=== PATIENT | female | born 1985 | race Caucasian/White ===

== ENCOUNTER → 2021-12-05 12:51 | Outpatient (CLI) | payer OTHER, SELFPAY ==
--- NOTE | 2021-12-05 | DI.MRI.S_ITS ---
PROCEDURE: MR WRIST RT WO CON INDICATIONS: Pain in right wrist TECHNIQUE: Noncontrast coronal proton density fast spin echo and T2 fast spin echo with fat saturation; coronal 3-D gradient echo, axial T1 spin echo and T2 fast spin echo with fat saturation, sagittal T1 spin echo through the wrist. COMPARISON: [facility], CR, XR WRIST 3+ VIEWS RIGHT, 11/02/2021, 10:46. [facility] [place], CR, XR WRIST 3+ VIEWS RIGHT, 11/15/2021, 16:21. FINDINGS: Image quality: Excellent. Bones and cartilage: The carpal bones are normally aligned. No bone marrow contusions or fractures. No evidence for avascular necrosis. There is mild degenerative spurring at the base of the 1st metacarpal. Carpal ligaments: The scapholunate and lunotriquetral ligaments appear intact. In the absence of intra-articular contrast, the extrinsic carpal ligaments are not well identified. On sagittal images, the pisohamate ligament appears intact. Triangular fibrocartilage complex: The triangular fibrocartilage appears intact. Tendons and soft tissues: The carpal tunnel structures appear normal, including the median nerve. The ulnar nerve appears normal within Guyon's canal. Mild thickening of the abductor pollicis longus tendon is consistent with tendinosis, without significant tenosynovitis. Mild extensor carpi ulnaris tendinosis. The remaining extensor tendon compartments demonstrate normal morphology, without pathologic tendon sheath fluid. No soft tissue ganglion cysts. IMPRESSION: 1. Mild distal abductor pollicis longus tendinosis without signs of de Quervain tenosynovitis. 2. Mild extensor carpi ulnaris tendinosis. 3. No acute trabecular bone injury. No significant ligament injury is seen. Dictated by: Nicholas Bryant M.D. on 12/05/2021 at 15:16 Approved by: Nicholas Bryant M.D. on 12/05/2021 at 15:22
== END ==
PROVIDERS: Referring Provider Orthopaedic Surgery Foot and Ankle Surgery; Visit Provider Orthopaedic Surgery Foot and Ankle Surgery
DX: M25.531 Pain in right wrist (principal)
CPT/HCPCS: 73221

== ENCOUNTER 2022-05-08 10:56 | Emergency (ER) | payer OTHER, SELFPAY ==
[2022-05-08 11:00] VITALS: BP 141/78; PULSE 90; RESP 14; TEMP 37.1; O2SAT 99; BMI 23.3
--- NOTE | 2022-05-08 11:42 | ED_ITS ---
HPI - Extremity Problem General Chief complaint: Extremity Problem,Nontraumatic Stated complaint: something wrong right arm vein Time Seen by Provider: 05/08/22 11:16 Source: patient Mode of arrival: Ambulatory History of Present Illness HPI Narrative: 36-year-old female nonsmoker is previously healthy though currently 2 months presents with a chief complaint of a red streak along with pain and swelling along her right upper medial arm that extends into her armpit. She states that she 1st noticed it in the aftermath of getting a blood draw 1st on April 27 and secondly on April 30. She has no circumferential swelling, only in this distribution, she denies any other symptoms such as fever, chills nor chest pain or shortness of breath. She denies nausea, vomiting or diarrhea and is otherwise well and free of complaint Related Data Home Medications Medication Instructions Recorded Confirmed sdjsvrl-ryq-biz C4-N0-vwyuwlko 250 2 tab PO DAILY 05/08/22 05/08/22 mg-40 mg-5 mg-125 unit tablet cartilage 40 mg-collagen II-boron tab PO 05/08/22 05/08/22 5 mg-hyaluronate sod 3.3 mg tablet cholecalciferol (vitamin D3) 10 10 mcg PO DAILY 05/08/22 05/08/22 mcg (400 unit) capsule cholecalciferol (vitamin D3) 125 125 mcg PO DAILY 05/08/22 05/08/22 mcg (5,000 unit) capsule prenat.vits,garrett,dhl-kjmv-jxqsf 1 tab PO DAILY 05/08/22 05/08/22 Previous Rx's Medication Instructions Recorded cephalexin 500 mg capsule 500 mg PO Q6H 7 days #28 caps 05/08/22 Allergies Allergy/AdvReac Type Severity Reaction Status Date / Time gentamicin Allergy Verified 05/08/22 11:03 gluten AdvReac Mild Diarrhea Verified 05/08/22 14:08 dairy Allergy Mild Rash Uncoded 05/08/22 14:08 Review of Systems Review of Systems Narrative: GENERAL: Denies chills, fatigue, malaise, fever, sweats. HEENT: Denies sinus pain, ear pain, sore throat, difficulty swallowing, dizziness. RESPIRATORY: Denies dyspnea, cough, wheezing, hemoptysis, sputum. CARDIOVASCULAR: Denies chest pain, palpitations, orthopnea, edema, GASTROINTESTINAL: Denies nausea, vomiting, abdominal pain, diarrhea, constipation, melena. : Denies dysuria, frequency, incontinence, hematuria, urinary retention. MUSCULOSKELETAL: denies weakness, joint pain, or bony pain SKIN: See HPI NEUROLOGIC: Denies weakness, headache, numbness, change in speech, confusion, seizures, incoordination. PSYCHIATRIC: No concerning psychosocial issues. 12 point review of systems is negative except for those stated above Patient History Medical History (Updated 05/08/22 @ 14:34 by Janell Rios RN) IBS (irritable bowel syndrome) Raynaud's disease Thrombosed hemorrhoids Surgical History (Updated 05/08/22 @ 14:21 by Janell Rios RN) History of removal of skin mole S/P hemorrhoidectomy [place] teeth extracted Social History marital status: number of children: 1 household members: spouse and children lives independently: Yes housing: house pets and animals: No education level: college (some college) occupational status: employed current occupational exposures/hazards: No special nitesh needs: No seatbelt use: always helmet use: Yes water heater temp set < 120 deg: Yes working smoke detector in home: Yes fire extinguisher in home: Yes carbon monox detector in home: Yes firearms in home: No do you feel safe at home: Yes Smoking Status: Never smoker second hand exposure: No alcohol intake: never substance use type: does not use during the past year weight has: remained stable well-balanced diet: daily or most days daily servings fruits/ve or more times/day caffeine: Yes Type(s) of exercise: none Smoking Status: Unknown if ever smoked alcohol intake frequency: holidays/special occasions only Substance Use Type: does not use Exam Narrative Exam Narrative: GENERAL: [36] year old patient appears stated age. Well-developed patient, in mild distress. HEAD: Atraumatic. Normocephalic. EYES: Pupils equal round and reactive. Extraocular motions intact. No scleral icterus. No injection or drainage. ENT: Nose without bleeding, purulent drainage. Throat without erythema, tonsillar hypertrophy or exudate. Airway patent. NECK: Trachea midline. Non tender CARDIOVASCULAR: Regular rate and rhythm without murmurs, gallops, or rubs. RESPIRATORY: Clear to auscultation. Breath sounds equal bilaterally. No wheezes, rales, or rhonchi. GASTROINTESTINAL: Abdomen soft, non-tender, nondistended. EXTREMITIES: Thin erythematous line extending from right antecubital fossa up proximally along medial upper extremity, there is some tender lymphadenopathy in right axilla. No circumferential erythema, distal sensation, strength and range of motion intact BACK: Nontender without deformity or crepitance. No flank tenderness. NEURO: AOx3. SKIN: No rash or erythema of visible areas Initial Vital Signs Initial Vital Signs: Vital Signs Temperature 98.7 F 05/08/22 11:00 Pulse Rate 90 05/08/22 11:00 Respiratory Rate 14 05/08/22 11:00 Blood Pressure 141/78 H 05/08/22 11:00 Pulse Oximetry 99 05/08/22 11:00 Oxygen Delivery Method 05/08/22 11:00 Course Orders Ordered: ED Orders 05/08/22 11:51 US periph venous up extrem rt Stat Vital Signs Vital signs: Vital Signs - 8 hr 05/08/22 11:00 Temperature 98.7 F Pulse Rate 90 Respiratory Rate 14 Blood Pressure 141/78 H Pulse Oximetry 99 Oxygen Delivery Method Room Air MDM - Extremity (Nontraumatic) Imaging Data US - DVT: Radiologist's Impression: Gabriella Marie??36??F??1985 ? Allergy/Adv: gentamicin, gluten, [dairy] (More??) Close Peripheral Vascular Ultrasound (Signed) AleksandrClaudia - 05/08/22 Wrist MRI (Signed) Nicholas Bryant - 12/05/21 [address] [address] Ultrasound Report Signed Patient: Gabriella Marie MR#: [id number] : 1985 Acct:[id number] Age/Sex: 36 / F Date of Service: 05/08/22 Loc: ED Accession Number: [id number] ?? Procedure: US periph venous up extrem rt Ordering Provider: Brett Brock D.O. PROCEDURE:? US PERIPH VENOUS UP EXTREM RT ? INDICATIONS:? PAIN, EDEMA POST BLOOD DRAW ? TECHNIQUE:? Real-time imaging, as well as color and pulse Doppler interrogation, was performed of the right upper extremity deep veins from the inferior neck to the antecubital fossa.? ? COMPARISON:? None. ? FINDINGS:? The internal jugular vein, visualized portions of the subclavian vein, axillary, and brachial veins are free of intraluminal thrombus.? Where physically possible, the veins are normally compressible.? Color and pulse Doppler demonstrate normal intraluminal flow, with expected phasicity and pulsatility.? Additional scanning of the cephalic and basilic veins of the superficial system demonstrate normal compressibility, without thrombus.? ? IMPRESSION:? No deep venous thrombosis. ? ? Dictated by: Claudia Brandon M.D. on 05/08/2022 at 12:36 ? ? Approved by: Claudia Brandon M.D. on 05/08/2022 at 12:37 ? MDM Narrative Medical decision making narrative: Patient with pain and minimal discoloration in the distribution of a blood vessel, proximal to a recent blood draw. Multiple diagnoses considered including superficial thrombus, DVT, and cellulitis. Ultrasound is unremarkable, will treat for mild superficial infection. Return precautions discussed and questions answered to her apparent satisfaction Discharge Plan Departure Patient Disposition: Home Clinical Impression: Cellulitis Activity Restrictions/Additional Instructions: *You have been diagnosed with [right arm pain, there is no evidence of deep clot and we will treat for possible infection given location and relation to recent blood draw. ] *What to do: *Please continue to take your regular medications as directed. [x ] New medication prescriptions sent to your pharmacy: [ Som] [ ] New medication written as a paper prescription [ ] No new medications given *Please follow up with your primary care provider in 2-3 days, call for an appointment. Let them know you were seen in the Emergency Department and that we ask that you be seen in follow up. We will electronically transmit a record of today's note if your PCP is in our system *If you do not have a primary care provider please contact the [facility] Resource line at [phone]. They will ask some questions about your medical history and help get you set up with a doctor in the community. *Return to Emergency Department if you should have any new, worsening or concerning symptoms, such as [fever greater than 101 F, shaking chills, worsening pain, persistent vomiting or other bothersome symptoms] Prescriptions: New cephalexin 500 mg capsule 500 mg PO Q6H 7 Days Qty: 28 0RF No Action prenat.vits,garrett,bfs-jxyf-fhhno Tablet 1 tab PO DAILY cholecalciferol (vitamin D3) 10 mcg (400 unit) capsule 10 mcg PO DAILY cholecalciferol (vitamin D3) 125 mcg (5,000 unit) capsule 125 mcg PO DAILY ewfnpbs-pte-ikx J4-F1-dzimuvdc 763-34-0-125 mg-ao-wt-unit tablet 2 tab PO DAILY Label Comments: takes for IBS cemqhhydb-aaugeqkz-fuc-hyalur 40-5-3.3 mg tablet PO Referrals: Miscellaneous,Doctor, MD [Primary Care Provider] - Visit Report Forms: Patient Portal/API
--- NOTE | 2022-05-08 11:51 | DI.US.S_ITS ---
PROCEDURE: US PERIPH VENOUS UP EXTREM RT INDICATIONS: PAIN, EDEMA POST BLOOD DRAW TECHNIQUE: Real-time imaging, as well as color and pulse Doppler interrogation, was performed of the right upper extremity deep veins from the inferior neck to the antecubital fossa. COMPARISON: None. FINDINGS: The internal jugular vein, visualized portions of the subclavian vein, axillary, and brachial veins are free of intraluminal thrombus. Where physically possible, the veins are normally compressible. Color and pulse Doppler demonstrate normal intraluminal flow, with expected phasicity and pulsatility. Additional scanning of the cephalic and basilic veins of the superficial system demonstrate normal compressibility, without thrombus. IMPRESSION: No deep venous thrombosis. Dictated by: Claudia Brandon M.D. on 05/08/2022 at 12:36 Approved by: Claudia Brandon M.D. on 05/08/2022 at 12:37
[2022-05-08 12:58] VITALS: BP 107/65; PULSE 73; RESP 18; O2SAT 100
== END 2022-05-08 12:59 | disposition home or self-care (01) ==
PROVIDERS: Emergency Provider Emergency Medicine
DX: O26.891 Other specified pregnancy related conditions, first trimester (principal); L03.113 Cellulitis of right upper limb
CPT/HCPCS: 93971; 99281; 99283

== ENCOUNTER → 2022-06-11 11:27 | Outpatient (CLI) | payer OTHER, SELFPAY ==
[2022-06-11 13:18] LABS: Add Manual Diff / Slide Review NO; Basophils Absolute Auto 0 /uL (0-100); Basophils Percent Auto 0.4 % (0-2); Eosinophils Absolute Auto 100 /uL (0-450); Eosinophils Percent Auto 0.9 % (2-4); Hematocrit 34.6 % (36-46); Hemoglobin 11.9 g/dL (12.0-16.0); Lymphocytes Absolute Auto 1600 /uL (1100-4500); Lymphocytes Percent Auto 22.9 % (25-40); Mean Corpuscular HGB Conc 34.2 % (30-36); Mean Corpuscular Hemoglobin 28.8 PG (26-34); Monocytes Absolute Auto 500 /uL (0-900); Monocytes Percent Auto 6.8 % (3-14); Neutrophils Absolute Auto 4800 /uL (1500-7000); Platelet Count 235 X10^3/uL (150-400); Red Blood Cell Count 4.12 X10^6/uL (4.0-5.2); Red Cell Distribution Width 13.9 % (11.6-14.8); White Blood Cell Count 6.9 X10^3/uL (4.5-11.0)
[2022-06-11 14:02] LABS: Appearance Urine UA TURBID; Bilirubin Urine UA NEGATIVE (NEGATIVE); Color Urine UA YELLOW; Glucose Urine UA NEGATIVE (Negative); Ketones Urine UA NEGATIVE (NEGATIVE); Leukocyte Esterase Urine UA NEGATIVE (NEGATIVE); Nitrite Urine UA NEGATIVE (Negative); Occult Blood Urine UA NEGATIVE (Negative); Protein Urine UA TRACE (Negative); Specific Gravity Urine UA 1.015 (1.000-1.035); Urobilinogen Urine UA 0.2 E.U./dL (0.2)
[2022-06-11 14:05] LABS: pH Urine UA 7.5 (4.5-8.0)
[2022-06-12 07:20] LABS: RPR Screen Non Reactive (Non Reactive)
[2022-06-12 08:09] LABS: Varicella IgG Antibody 166 index (Immune >165)
[2022-06-12 16:07] LABS: Hepatitis B Surface Antigen NEGATIVE s/c (NEGATIVE); Rubella Antibody IgG 22.7 IU/mL (>15)
[2022-06-12 16:23] LABS: HIV 1 & 2 Ab/Ag 4th Gen Combo NEGATIVE (NEGATIVE); Hep C Virus Ab w/Reflex Quant NEGATIVE s/c (NEGATIVE)
== END ==
PROVIDERS: PCP Nurse Practitioner Family; Referring Provider Obstetrics & Gynecology; Visit Provider Obstetrics & Gynecology
DX: Z34.81 Encounter for supervision of other normal pregnancy, first trimester (principal); Z3A.10 10 weeks gestation of pregnancy
CPT/HCPCS: 36415; 80055; 81003; 86787; 86803; 86850; 86900; 86901; 87086; 87389

== ENCOUNTER 2024-05-10 07:53 | Emergency (ER) | payer OTHER, SELFPAY ==
[2024-05-10 07:57] VITALS: BP 138/95; PULSE 73; O2SAT 99
[2024-05-10 07:58] VITALS: BP 138/95; PULSE 79; RESP 16; TEMP 36.7; O2SAT 98; BMI 23.3
--- NOTE | 2024-05-10 08:00 | ED.ABDPAIN ---
HPI - Abdominal Pain General Chief Complaint: Abdominal Pain Stated Complaint: intestinal blockage Time Seen by Provider: 05/10/24 07:54 History of Present Illness HPI narrative: 38-year-old female presents for bloating, issues with bowel movements for the last several weeks. She states that she has been taking MiraLax and has only been able to produce diarrhea once. She states that she was having problems passing gas but yesterday she began to pass gas again. Denies nausea or vomiting. She messaged her primary doctor who referred her to the ER for evaluation. Patient reports history of IBS, states that she had a colonoscopy about 6 years ago that was normal. Denies family history of colon cancer. Related Data Home Medications Medication Instructions Recorded Confirmed jaigrhu-nji-hox T5-A7-vdcbsqxj 250 2 tab PO DAILY 05/08/22 05/29/22 mg-40 mg-5 mg-125 unit tablet cartilage 40 mg-collagen II-boron tab PO 05/08/22 05/29/22 5 mg-hyaluronate sod 3.3 mg tablet cholecalciferol (vitamin D3) 10 10 mcg PO DAILY 05/08/22 05/29/22 mcg (400 unit) capsule cholecalciferol (vitamin D3) 125 125 mcg PO DAILY 05/08/22 05/29/22 mcg (5,000 unit) capsule prenat.vits,garrett,fkx-yoej-iykan 1 tab PO DAILY 05/08/22 05/29/22 Previous Rx's Medication Instructions Recorded ondansetron 4 mg disintegrating 4 mg PO Q6-8H PRN nausea #20 tabs 05/11/22 tablet promethazine 25 mg tablet 25 mg PO TID PRN nausea #20 tabs 05/29/22 Allergies Allergy/AdvReac Type Severity Reaction Status Date / Time gentamicin Allergy Verified 05/10/24 08:05 gluten AdvReac Mild Diarrhea Verified 05/10/24 08:05 dairy Allergy Mild Rash Uncoded 05/29/22 11:26 Patient History Medical History PTSD (post-traumatic stress disorder) (~2020) Depression Anxiety Carpal tunnel syndrome (~2016) Chicken pox (~1989) Abnormal Pap smear of cervix (~2012) Hemorrhoid (~2011) Raynaud's disease Thrombosed hemorrhoids IBS (irritable bowel syndrome) (~2011) Surgical History Anesthesia [place] teeth extracted History of removal of skin mole S/P hemorrhoidectomy (~2016) Family History Mother Cancer Hypertension Mental health problem Sister Cancer Sister History of heart disease Grandfather Diabetes mellitus Grandmother Cancer Grandfather Diabetes mellitus Social History marital status: number of children: 1 household members: spouse and children lives independently: Yes housing: house pets and animals: No education level: college (some college) occupational status: employed current occupational exposures/hazards: No special nitesh needs: No seatbelt use: always helmet use: Yes water heater temp set < 120 deg: Yes working smoke detector in home: Yes fire extinguisher in home: Yes carbon monox detector in home: Yes firearms in home: No do you feel safe at home: Yes Smoking Status: Never smoker second hand exposure: No alcohol intake: never substance use type: does not use during the past year weight has: remained stable well-balanced diet: daily or most days daily servings fruits/ve or more times/day caffeine: Yes Type(s) of exercise: none Smoking Status: Never smoker alcohol intake frequency: holidays/special occasions only Substance Use Type: does not use Exam Initial Vital Signs Initial Vital Signs: Vital Signs Pulse Rate 73 05/10/24 07:57 Blood Pressure 138/95 H 05/10/24 07:57 Pulse Oximetry 99 05/10/24 07:57 Course Orders Ordered: ED Orders 05/10/24 08:00 XR KUB Stat 05/10/24 08:10 Ictotest Urine Stat Urine Microscopic Stat Discontinued Medications Polyethylene Glycol/Electrolytes ([id number]/Sod Sulf,Bicarb,Cl/Kcl 4,000 Ml Solution) 4,000 ml PO NOW ONE Stop: 05/10/24 09:07 Last Admin: 05/10/24 09:24 Dose: 4,000 ml Documented By: SPF Vital Signs Vital signs: Vital Signs - 8 hr 05/10/24 07:57 05/10/24 07:57 05/10/24 07:58 Temperature 98.1 F Pulse Rate 73 79 Respiratory Rate 16 Blood Pressure 138/95 H 138/95 H Pulse Oximetry 99 98 Oxygen Delivery Method Room Air 05/10/24 09:25 05/10/24 09:26 Temperature Pulse Rate 83 Respiratory Rate Blood Pressure 111/78 Pulse Oximetry 96 Oxygen Delivery Method MDM - Abdominal Pain Lab Data Labs: Lab Results 05/10/24 Range/Units 08:10 Ur Bilirubin Confirm Negative (Negative) Urine RBC 0-1/hpf (0-5/HPF) Urine WBC 0-1/hpf (0-5/HPF) Ur Squamous Epith Cells 0-1 /hpf (0-5/HPF) Urine Bacteria Few (2-10) H (None) Urine Mucus 1+ H (Negative) Urine Yeast 0-1/hpf (None) Ur Culture Indicated? Cult not indicated Vol Urine Centrifuged 10ml (spun) Point of care testing: Point of Care Testing Test Results Negative Urine Dip Bedside Urine Glucose Negative Bedside Urine Bilirubin + 1 Bedside Urine Ketone - Negative Urine Specific [place] 1.015 Bedside Urine Occult Blood + Bedside Urine pH 8.0 Bedside Urine Protein - Negative Bedside Urine Urobilinogen - Negative Bedside Urine Nitrite - Negative Bedside Urine Leukocytes - Negative Esterase Imaging Data Abdominal x-ray: Radiologist's Impression: PROCEDURE: XR KUB INDICATIONS: BLOATING, CONSTIPATION TECHNIQUE: One view of the abdomen acquired. COMPARISON: None. FINDINGS: Surgical changes and devices: None. Bowel: Bowel gas pattern is normal. No dilated air-filled small bowel loops. Normal to minimally increased quantity of stool in the colon. Soft tissues: No suspicious abdominal calcifications. Visualized solid organ contours appear normal in size. Bones: No suspicious bony lesions. IMPRESSION: No acute abnormality. Dictated by: Azucena San M.D. on 05/10/2024 at 8:54 Approved by: Azucena San M.D. on 05/10/2024 at 8:55 [facility] Narrative Medical decision making narrative: Well-appearing patient concerned that she may have a blockage in her intestines. She has not had any nausea or vomiting, is passing gas, and reports a recent diarrheal bowel movement. Abdomen is soft and there was no reproducible tenderness to palpation, no obvious distention. KUB negative for signs of distention. Patient given a gal of GoLYTELY and instructed to drink it throughout the day to produce further bowel movements. Patient states that she has an appointment soon with her physician to talk about need for any further endoscopy or colonoscopy. Discharge Plan Departure Patient Disposition: Home Clinical Impression: Constipation Instructions: DI for Constipation Activity Restrictions/Additional Instructions: Take the administered GoLYTELY given for bowel movement production. There was no evidence of obstruction on your x-ray. Follow up with your doctor for further discussion about future colonoscopies. Prescriptions: No Action ondansetron 4 mg tablet,disintegrating 4 mg PO Q6-8H PRN (Reason: nausea) Qty: 20 2RF promethazine 25 mg tablet 25 mg PO TID PRN (Reason: nausea) Qty: 20 0RF prenat.vits,garrett,ezi-qnkb-axvop Tablet 1 tab PO DAILY cholecalciferol (vitamin D3) 10 mcg (400 unit) capsule 10 mcg PO DAILY cholecalciferol (vitamin D3) 125 mcg (5,000 unit) capsule 125 mcg PO DAILY lajumhp-awz-jbj P1-Z8-vccfmldu 155-75-0-125 fp-ip-ki-unit tablet 2 tab PO DAILY Patient Comments: takes for IBS kpozvkamy-dyfrehir-ybp-hyalur 40-5-3.3 mg tablet PO Referrals: Alyssa Ashley ARNP [Primary Care Provider] - Stand Alone Forms: Patient Portal/API
[2024-05-10 08:48] LABS: Ictotest Urine Negative (Negative); Urine Volume 10mL (spun)
[2024-05-10 08:57] LABS: Bacteria Urine Few (2-10); Mucus Urine 1+ (Negative); RBC Urine 0-1/HPF (0-5/HPF); Squamous Epithelial Cell Urine 0-1 /HPF (0-5/HPF); WBC Urine 0-1/HPF (0-5/HPF)
[2024-05-10 08:58] LABS: Culture Indicated Urine Cult Not Indicated
[2024-05-10] MEDS: PEG3350/SOD SULF,BICARB,CL/KCL 4,000 ML SOLUTION 4000 ML PO (09:24)
[2024-05-10 09:25] VITALS: PULSE 83; O2SAT 96
[2024-05-10 09:26] VITALS: BP 111/78
== END 2024-05-10 09:30 | disposition home or self-care (01) ==
PROVIDERS: Emergency Provider Emergency Medicine; PCP Nurse Practitioner Family
DX: K59.00 Constipation, unspecified (principal); R10.9 Unspecified abdominal pain
CPT/HCPCS: 74018; 81003; 81015; 81025; 99283; 99284